=== PATIENT | female | born 1990 | race Two or more races ===

== ENCOUNTER 2021-03-25 08:03 | Emergency (ER) | payer MEDICAID, SELFPAY ==
--- NOTE | 2021-03-25 08:13 | ED.SKABFB ---
HPI - Skin/Abscess/Foreign Bdy General Chief complaint: Skin/Abscess/Foreign Body Stated complaint: Cyst on back Time Seen by Provider: 03/25/21 08:13 Source: patient, RN notes reviewed and old records reviewed Mode of arrival: ambulatory Limitations: no limitations History of Present Illness HPI narrative: 31-year-old female presents to the [facility] with a cyst to the left upper back. Patient reports its been there for approximately 3 years. Area is firm. No fluctuance. No increased redness or warmth at this time. Patient reports that it was hot to touch last night. Has 2 areas, states mom is a nurse and was trying to poke it with a needle and drain it at home with no Drainage. states that she has tried seeing a solar sales manager in the past for the same but was told they could not do anything for it MD complaint: abscess/boil Related Data Home Medications Medication Instructions Recorded Confirmed multivitamin 1 tablet PO DAILY 03/14/19 escitalopram oxalate 5 mg tablet 5 mg PO DAILY 05/20/20 Allergies Allergy/AdvReac Type Severity Reaction Status Date / Time Latex, Natural Rubber AdvReac Swelling Verified 05/20/20 12:07 Review of Systems Review of Systems: All systems reviewed & are unremarkable except as noted in HPI and below Constitutional: Constitutional: Reports no additional constitutional complaints, Denies chills and Denies fever(s) Eyes: Eyes: Reports no additional eye complaints ENT: Reports system reviewed and no additional complaints, except as documented Cardiovascular: Cardiovascular: Reports no additional cardiovascular complaints, Denies chest pain and Denies dyspnea Respiratory: Respiratory: Reports no additional respiratory complaints, Denies cough and Denies dyspnea Gastrointestinal: Gastrointestinal: Reports no additional gastrointestinal complaints, Denies abdominal pain, Denies nausea and Denies vomiting Musculoskeletal: Musculoskeletal: Reports no additional musculoskeletal complaints Integumentary/Breasts: Skin/Breast: Reports as per HPI, Denies erythema and Denies rash Comments: cyst left mid back x 3 years Neurologic: Reports system reviewed and no additional complaints, except as documented Psychiatric: Psychiatric: Reports no additional psychiatric complaints Allergic/Immunologic: Allergic/Immunologic: Reports no additional allergic/immunologic complaints PMF Past Medical History Medical History (Updated 03/25/21 @ 08:22 by Renata Sweeney) Abnormal cervical cytology cervical cryosurgery Anxiety Depression Surgical History Surgical History History of removal of cyst 11/2019, in armpit Family History Family History Grandparent Carcinoma of colon Acute myocardial infarction Cerebrovascular accident Father Hypertension High cholesterol Social History Social History Smoking status: Never smoker Alcohol intake: current Drinks per week: 3 Substance use: current Substance use type: marijuana Comments At the time of my signature, I reviewed and agree with the nursing past medical, surgical, social, and family history. There is no relevant family history pertinent to the patient complaint. Exam Const: General: cooperative, healthy appearing, no acute distress, well developed, alert and awake Nutritional Appearance: well nourished and obese Orientation/consciousness: patient oriented x3 Limitations: no limitations HENMT: Head: normal to inspection and No palpable skull fracture present Ears: hearing grossly normal bilaterally, external ears normal, TM's normal bilaterally and EAC's normal Eyes: Pupils: Equal, round and reactive pupils present Neck: Neck: normal visual inspection, no lymphadenopathy and no meningeal signs Chest: Chest palpation & inspection: normal inspection of the chest Resp:
[2021-03-25 08:14] VITALS: BP 139/84; PULSE 88; RESP 16; TEMP 36.6; O2SAT 99
== END 2021-03-25 08:30 | disposition home or self-care (01) ==
PROVIDERS: Emergency Provider Nurse Practitioner
DX: D23.5 Other benign neoplasm of skin of trunk (principal); F41.9 Anxiety disorder, unspecified; F32.A Depression, unspecified
CPT/HCPCS: 99213; G0463

== ENCOUNTER 2021-05-03 08:00 | Outpatient (NON) | payer MEDICAID, SELFPAY | END 2021-05-03 08:01 | disposition home or self-care (01) | LOC: ANHSURGERY 05-04 08:04 | DX: L72.8 Other follicular cysts of the skin and subcutaneous tissue (principal) | CPT/HCPCS: 88305 ==

== ENCOUNTER 2021-08-16 08:43 | Outpatient (CLI) | payer OTHER, SELFPAY ==
[2021-08-16 09:30] LABS: Basophils Percent Auto 0.2 % (0.2-1.2); Eosinophils Absolute Auto 0.2 K/mm3 (0-0.3); Eosinophils Percent Auto 1.8 % (0-4.4); Hematocrit 43.4 % (37.0-47.0); Hemoglobin 13.7 g/dL (12.0-15.0); Immature Granulocyte Absolute 0.02 K/mm3 (0.00-0.031); Immature Granulocyte Percent A 0.2 % (0-0.5); Lymphocytes Absolute Auto 2.89 K/mm3 (0.9-3.2); Lymphocytes Percent Auto 34.4 % (18.3-44.2); Mean Corpuscular HGB Conc 31.6 g/dl (32-36); Mean Corpuscular Hemoglobin 27.2 pg (26-34); Mean Corpuscular Volume 86.1 fl (80-100); Mean Platelet Volume 11.6 fl (7.4-10.4); Monocytes Absolute Auto 0.6 K/mm3 (0.1-0.6); Monocytes Percent Auto 7.5 % (2.6-8.5); Neutrophils Absolute Auto 4.7 K/mm3 (1.3-6.7); Neutrophils Percent Auto 55.9 % (45.5-73.1); Platelet Count Result 214 k/mm3 (150-375); Red Blood Count 5.04 M/mm3 (4.2-5.4); Red Cell Distribution Width 12.5 % (11.5-14.5); White Blood Count 8.4 K/mm3 (4.5-10.0)
[2021-08-16 09:40] LABS: Hemoglobin A1C 5.2 % (<5.7)
[2021-08-16 09:42] LABS: Alanine Aminotransferase 18 U/L (6-35); Albumin Level 4.7 g/dL (3.5-5.1); Alkaline Phosphatase 101 U/L (38-126); Anion Gap 7 mmol/L (8-16); Aspartate Amino Transferase 26 U/L (14-36); Bilirubin,Total 0.1 mg/dL (0.2-1.3); Blood Urea Nitrogen 14 mg/dL (7-17); Carbon Dioxide 24 mmol/L (22-30); Chloride 105 mmol/L (98-107); Cholesterol 178 mg/dL (0-200); Estimated Glomerular Filt Rate > 60; Glucose 85 mg/dL (65-110); HDL Direct 57 mg/dL; Potassium 4.3 mmol/L (3.4-5.0); Sodium 136 mmol/L (137-145); Triglycerides 92 mg/dL (<150)
[2021-08-16 09:53] LABS: LDL Cholesterol Direct 69 mg/dL
[2021-08-16 10:00] LABS: Vitamin D 25 Hydroxy 57.1 ng/mL
== END 2021-08-16 08:44 | disposition home or self-care (01) ==
LOC: ANHLAB 08:46
PROVIDERS: PCP Internal Medicine; Visit Provider Clinical Nurse Specialist
DX: Z13.228 Encounter for screening for other metabolic disorders (principal); E55.9 Vitamin D deficiency, unspecified; R73.9 Hyperglycemia, unspecified; Z13.220 Encounter for screening for lipoid disorders; F41.9 Anxiety disorder, unspecified
CPT/HCPCS: 36415; 80053; 80061; 82306; 83036; 84443; 85025

== ENCOUNTER 2022-05-05 11:13 | Outpatient (CLI) | payer OTHER, SELFPAY ==
[2022-05-05 11:47] LABS: Basophils Percent Auto 0.4 % (0.2-1.2); Eosinophils Absolute Auto 0.1 K/mm3 (0-0.3); Eosinophils Percent Auto 1.3 % (0-4.4); Hematocrit 41.8 % (37.0-47.0); Hemoglobin 13.5 g/dL (12.0-15.0); Immature Granulocyte Absolute 0.03 K/mm3 (0.00-0.031); Immature Granulocyte Percent A 0.4 % (0-0.5); Lymphocytes Percent Auto 42.8 % (18.3-44.2); Mean Corpuscular HGB Conc 32.3 g/dl (32-36); Mean Corpuscular Hemoglobin 27.4 pg (26-34); Mean Corpuscular Volume 84.8 fl (80-100); Mean Platelet Volume 10.5 fl (7.4-10.4); Monocytes Absolute Auto 0.5 K/mm3 (0.1-0.6); Monocytes Percent Auto 6.6 % (2.6-8.5); Neutrophils Absolute Auto 3.3 K/mm3 (1.3-6.7); Neutrophils Percent Auto 48.5 % (45.5-73.1); Platelet Count Result 289 k/mm3 (150-375); Red Blood Count 4.93 M/mm3 (4.2-5.4); Red Cell Distribution Width 13.1 % (11.5-14.5); White Blood Count 6.8 K/mm3 (4.5-10.0)
[2022-05-05 11:54] LABS: Hemoglobin A1C 5.1 % (<5.7)
[2022-05-05 12:00] LABS: Alanine Aminotransferase 20 U/L (6-35); Albumin Level 4.8 g/dL (3.5-5.1); Alkaline Phosphatase 118 U/L (38-126); Anion Gap 5 mmol/L (8-16); Aspartate Amino Transferase 28 U/L (14-36); Bilirubin,Total 0.6 mg/dL (0.2-1.3); Blood Urea Nitrogen 11 mg/dL (7-17); Calcium 9.3 mg/dL (8.4-10.2); Carbon Dioxide 30 mmol/L (22-30); Chloride 104 mmol/L (98-107); Cholesterol 191 mg/dL (0-200); Estimated Glomerular Filt Rate > 60; Glucose 88 mg/dL (65-110); HDL Direct 60 mg/dL; Potassium 3.9 mmol/L (3.4-5.0); Sodium 139 mmol/L (137-145); Triglycerides 130 mg/dL (<150)
[2022-05-05 12:10] LABS: LDL Cholesterol Direct 79 mg/dL
[2022-05-10 19:47] LABS: Alpha-1-Antitrypsin, QN 135 mg/dL (83-199)
== END 2022-05-05 11:14 | disposition home or self-care (01) ==
PROVIDERS: PCP Internal Medicine; Visit Provider Clinical Nurse Specialist
DX: F41.9 Anxiety disorder, unspecified (principal); Z13.220 Encounter for screening for lipoid disorders; K21.9 Gastro-esophageal reflux disease without esophagitis; Z13.228 Encounter for screening for other metabolic disorders; R73.9 Hyperglycemia, unspecified
CPT/HCPCS: 36415; 80053; 80061; 82103; 83036; 84443; 85025

== ENCOUNTER 2022-06-14 15:32 | Outpatient (CLI) | payer OTHER, SELFPAY ==
--- NOTE | ~2022-06-14 | US_ITS ---
EXAMINATION: US pelvic complete w TV DATE: 06/14/2022 16:16 INDICATION: PELVIC PAIN TECHNIQUE: Multiple transabdominal and endovaginal sonographic images of the pelvis were obtained. COMPARISON: None. FINDINGS: Uterus: 8.4 x 3.3 x 4.2 cm. Small volume fluid in the endometrial canal near the cervix. Endometrial complex measures 7 mm. Right Ovary: 2.5 x 3.1 x 2.4 cm. Vascular flow is present. 1.9 cm simple cyst Left Ovary: 2.3 x 1.3 x 2.3 cm. Vascular flow is present. There is no free fluid in the pelvis. IMPRESSION: Small volume fluid present in the endocervical canal. 1.9 cm simple right ovarian cyst. Reviewed, dictated and finalized at location K. IMPRESSION: Small volume fluid present in the endocervical canal. 1.9 cm simple right ovari an cyst.
== END 2022-06-14 15:33 | disposition home or self-care (01) ==
PROVIDERS: PCP Internal Medicine; Visit Provider Obstetrics & Gynecology Gynecology
DX: R10.2 Pelvic and perineal pain (principal); N83.201 Unspecified ovarian cyst, right side
CPT/HCPCS: 76830; 76856

== ENCOUNTER 2022-12-14 11:00 | Outpatient (RCR) | payer OTHER, SELFPAY ==
--- NOTE | 2022-10-26 16:30 | OPREHPOC ---
Outpatient Therapy Plan of Care This is a Multidisciplinary Plan of Care that may contain components documented by all disciplines (PT, OT, and ST.) PT Problem 1 PT Problem #1 Knowledge Deficit PT Goal 1 Goal Pt to be IND with issued HEP Target Visit 4 PT Problem 2 PT Problem #2 Pain PT Goal 1 Goal Pt to report shoulder pain no greater than 3/10 in the last week Target Visit 4 PT Goal 2 Goal pt to report 75% improvement in overall symptoms Target Visit 4 PT Problem 3 PT Problem #3 Impaired Strength PT Goal 1 Goal Pt to demonstrate a 30lb lift and carry without an increase in symptoms Target Visit 4 PT Goal 2 Goal Pt to demonstrate 5lb overhead press without an increase in symptoms.
--- NOTE | 2022-10-26 16:30 | PTOPEVAL1 ---
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 She states her legs feel weak especially with recent weight gait. She states her knee shifts a little bit and she wants to make sure its okay. She got new shoes and her knee still feels unstable. She states her knee hurts more when she is sitting for a while and goes to stand up. Last year she states she was doing cartwheels and felt a pop in her shoulder. She states recently with more weight gain her bra straps are hurting her shoulder and she noted weakness in the L compared to the R shoulder. She states she will feel a pull or a pop even when picking up groceries. Pt works in retail. Reported Pain Level Pain Score 4: Self Report Assessment PT Clinical Summary Pinky presents to therapy today for her initial evaluation with a diagnosis of L shoulder and L knee pain. She demonstrates good shoulder and LE ROM that is equal bilaterally. She demonstrates good LE strength with some decreased stability during functional movements and demonstrates mild pain with resistance. Skilled physical therapy services are indicated to improve functional stability, to manage pain, and to improve overall function. Plan of Care Interventions Electrical Stimulation,Gait Training,Hot Pack/Cold Pack,Manual Therapy,Neuro Re-education,Patient/ Caregiver Educati,Therapeutic Activities, Therapeutic Exercise PT Services Indicated Yes Treatment Frequency and 1x/wk for 4 visits Duration These treatments will address the objective and functional deficits as defined above. The patient will be advanced safely and appropriately in order for the patient to progress towards his/her prior level of function. Additional exercises will be introduced and as well as a comprehensive home exercise program upon discharge, if needed, ?to ensure carryover of functional gains achieved in the clinic. This treatment plan has been reviewed and agreement upon by the patient.
--- NOTE | 2022-11-23 16:42 | PTOPPROG ---
Assessment and note entered by Leslie Hubbard, PT, DPT Evaluation Information Assessment Status Progress Diagnosis L knee pain, L shoulder pain Onset greater than 1 year Subjective Information Pt states overall things are going better, she states she is more aware of her body mechanics and movement patterns. She states her shoulder does not hurt nearly as bad as it did to start, but still a little tender. She has been using a massage gun to help release tension in her low back, knees, and shoulder. Assessment PT Clinical Summary Pinky presents to therapy today for her initial evaluation with a diagnosis of L shoulder and L knee pain. She demonstrates good shoulder and LE ROM that is equal bilaterally. She demonstrates asymmetric patellar glided during quad sets and functional movements. Continuation of skilled physical therapy services are indicated to improve functional stability, to manage pain, to improve overall function, and to further progress towards therapy goals. Plan of Care Interventions Electrical Stimulation,Gait Training,Hot Pack/Cold Pack,Manual Therapy,Neuro Re-education,Patient/ Caregiver Educati,Therapeutic Activities, Therapeutic Exercise PT Services Indicated Yes Treatment Frequency and 1x/wk for 4 visits Duration These treatments will address the objective and functional deficits as defined above. The patient will be advanced safely and appropriately in order for the patient to progress towards his/her prior level of function. Additional exercises will be introduced and as well as a comprehensive home exercise program upon discharge, if needed, ?to ensure carryover of functional gains achieved in the clinic. This treatment plan has been reviewed and agreement upon by the patient.
--- NOTE | 2022-12-14 13:08 | PTOPPROG ---
Assessment and note entered by Leslie Hubbard, PT, DPT Evaluation Information Assessment Status Progress Diagnosis L knee pain, L shoulder pain Onset greater than 1 year Subjective Information Pt states her shoulder is better and she is very pleased with her progress. She states her knee better as well. She states she can feel when she does her exercises vs when she does not. She states standing to get through her work day will cause her knee pain to get up to a 5-6/10, she rests and takes ibuprofen and this getting better. Assessment PT Clinical Summary Pinky presents to therapy today for her progress report following 8 visits of skilled therapy to treat her L shoulder and L knee pain. She demonstrates good BUE ROM and strength that is functional and mostly pain free. Her LE strength and body awareness is progressing well. She continues to require some cueing for exercises to limit spinal hyperextension and for proper LE alignment. Continuation of skilled therapy services are indicated to continue to improve LE strength and body mechanics. Plan of Care Interventions Electrical Stimulation,Gait Training,Hot Pack/Cold Pack,Manual Therapy,Neuro Re-education,Patient/ Caregiver Educati,Therapeutic Activities, Therapeutic Exercise PT Services Indicated Yes Treatment Frequency and 1x/wk for 4 visits Duration These treatments will address the objective and functional deficits as defined above. The patient will be advanced safely and appropriately in order for the patient to progress towards his/her prior level of function. Additional exercises will be introduced and as well as a comprehensive home exercise program upon discharge, if needed, ?to ensure carryover of functional gains achieved in the clinic. This treatment plan has been reviewed and agreement upon by the patient.
--- NOTE | 2022-12-18 09:39 | PTOPDC ---
Assessment and note entered by Leslie Hubbard, PT, DPT Evaluation Information Assessment Status Discharge - Pt Not Present Diagnosis L knee pain, L shoulder pain Onset greater than 1 year Subjective Information Called and spoke with patient to inform her of her insurance denial for further appointments. Pt states she anticipated this. Assessment PT Clinical Summary Pinky completed 8 visits of skilled therapy from 10/26/22 to 12/14/22. She will be discharged at this time.
== END 2022-12-18 10:23 | disposition home or self-care (01) ==
LOC: ANHGOSHPT 11:00
PROVIDERS: PCP Internal Medicine; Visit Provider Clinical Nurse Specialist
DX: M25.562 Pain in left knee (principal); M25.512 Pain in left shoulder
CPT/HCPCS: 97110; 97112; 97140; 97161; 97530